=== PATIENT | male | born 1980 | race African-American/Black ===

== ENCOUNTER → 2017-10-15 | Outpatient (CLI) | payer BC, OTHER ==
[~2017-10-15] MED LIST: LOPRESSOR25 PO; MOBIC15 MG PO; NOHOMEMEDICATIONS; NORCO 7.5-3251 EACH PO; PHENERGAN 25 MG25 M1 PO; SENOKOT-S1 TA2 PO
== END ==
LOC: RAD 13:37
DX: S22.42XA Multiple fractures of ribs, left side, initial encounter for closed fracture (principal); X58.XXXA Exposure to other specified factors, initial encounter; Y93.89 Activity, other specified; Y92.89 Other specified places as the place of occurrence of the external cause; Y99.8 Other external cause status

== ENCOUNTER → 2017-11-08 | Outpatient (CLI) | payer BC, OTHER | LOC: RAD 13:33 | DX: S22.32XA Fracture of one rib, left side, initial encounter for closed fracture (principal); X58.XXXA Exposure to other specified factors, initial encounter; Y93.89 Activity, other specified; Y92.89 Other specified places as the place of occurrence of the external cause; Y99.8 Other external cause status ==

== ENCOUNTER → 2018-08-19 | Outpatient (CLI) | payer BC, OTHER | LOC: RAD 14:12 | DX: M54.5 Low back pain (principal) ==